=== PATIENT | male | born 1945 | race Caucasian/White ===

== ENCOUNTER 2018-04-28 21:00 | Emergency (ER) | payer OTHER, MEDICARE ==
[~2018-04-28] VITALS: Ht 188 cm; Wt 109.8 kg
[2018-04-28 21:04] VITALS: Ht 188 cm; Wt 109.8 kg
[2018-04-28 23:50] VITALS: BP 117/65
== END 2018-04-28 23:50 | disposition home or self-care (01) ==
LOC: ED 21:00
DX: R33.9 Retention of urine, unspecified (principal); R10.30 Lower abdominal pain, unspecified; I10 Essential (primary) hypertension